=== PATIENT | female | born 2000 | race American Indian/Alaskan Native ===

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

== ENCOUNTER 2019-02-10 16:41 | Inpatient (IN) | payer OTHER ==
[2019-02-10] MEDS ORDERED: OXYTOCIN 20 UNIT/1000ML DRIP 20,000 MILLIUNITS/1,000 ML BAG IV ONE (17:21)
[2019-02-10] MEDS ORDERED: LACTATED RINGERS 1,000 ML ONE (17:24)
[2019-02-10] MEDS ORDERED: fentaNYL 100 MCG/2 ML INJ IV PRN (17:44)
[2019-02-10] MEDS ORDERED: AMPICILLIN/NS 2 GM/100 ML 2 GM/100 ML BAG IV ONE (17:44)
[2019-02-10] MEDS ORDERED: ePHEDrine SULFATE 50 MG/1 ML INJ IV PRN (17:44)
[2019-02-10] MEDS ORDERED: LIDOCAINE (2%) 20 MG/1 ML VIAL 20 ML MDV INFILTRATI ONE (17:44)
[2019-02-10] MEDS ORDERED: TERBUTALINE 1 MG/1 ML INJ IVP PRN (17:44)
[2019-02-10] MEDS ORDERED: TERBUTALINE 1 MG/1 ML INJ SUB-Q PRN (17:44)
[2019-02-10] MEDS ORDERED: MINERAL OIL 30 ML ORAL LIQD PO PRN (17:44)
--- NOTE | 2019-02-10 17:45 | Ultrasound Report ---
US OB limited INDICATION / CLINICAL INFORMATION: for position. COMPARISON: None available. FINDINGS: Fetus is in cephalic presentation. heart rate is 130 bpm. IMPRESSION: 1. lie is currently cephalic. Signer Name: Deny Rivero MD Signed: 02/10/2019 5:40 PM Workstation Name: [id number]
--- NOTE | 2019-02-10 17:52 | History and Physical Report ---
History of Present Illness Date of examination: 02/10/19 Date of admission: 02/10/19 17:09 Chief complaint: contractions History of present illness: This is a 18 yo at 37+6 weeks came in for contractions noted to be 8cm. She is a walk in and chart unavailable. Past History Past Medical History: no pertinent history Past Surgical History: no surgical history Family/Genetic History: none Social history: no significant social history, single. denies: smoking, alcohol abuse, prescription drug abuse - Obstetrical History Expected Date of Delivery: 02/25/19 Actual Gestation: 37 Week(s) 6 Day(s) : 2 Para: 0 Hx # Term Pregnancies: 0 Number of Pregnancies: 0 Spontaneous Abortions: 0 Induced : 1 Number of Living Children: 0 Medications and Allergies Allergies Allergy/AdvReac Type Severity Reaction Status Date / Time No Known Allergies Allergy Unverified 11/06/17 21:14 Active Meds: Active Medications Ephedrine Sulfate (Ephedrine Sulfate) 10 mg IV Q2M PRN PRN Reason: Hypotension Fentanyl (Sublimaze) 100 mcg IV Q2H PRN PRN Reason: Labor Pain Oxytocin/Sodium Chloride (Pitocin/Ns 20 Unit/1000ml Drip) 20 units in 1,000 mls @ 125 mls/hr IV DIRECT JACKIE Oxytocin/Sodium Chloride (Pitocin/Ns 30 Unit/500ml) 30 units in 500 mls @ 1 mls/hr IV TITR JACKIE; Protocol Lactated Ringer's (Lactated Ringers) 1,000 mls @ 125 mls/hr IV DIRECT JACKIE Ampicillin Sodium (Ampicillin/Ns 2 Gm/100 Ml) 2 gm in 100 mls @ 100 mls/hr IV ONCE ONE; Protocol Stop: 02/10/19 18:43 Lidocaine (Xylocaine 2%) 20 ml INFILTRATI ONCE ONE Stop: 02/10/19 17:45 Mineral Oil (Mineral Oil) 30 ml PO QHS PRN PRN Reason: Constipation Terbutaline Sulfate (Brethine) 0.25 mg SUB-Q ONCE PRN PRN Reason: Hyperstimulation/Hypertonicity Terbutaline Sulfate (Brethine) 0.25 mg IVP ONCE PRN PRN Reason: Hyperstimulation/Hypertonicity - Vital Signs Vital signs: Vital Signs Pulse BP 100 H 137/81 02/10/19 16:50 02/10/19 16:50 Temp Pulse Resp BP Pulse Ox 100 H 137/81 02/10/19 16:50 02/10/19 16:50 - Physical Exam Breasts: Positive: normal Cardiovascular: Regular rate, Normal S1 Lungs: Positive: Clear to auscultation, Normal air movement Abdomen: Positive: normal appearance, soft, normal bowel sounds. Negative: distention, tenderness, guarding Genitourinary (Female): Positive: normal external genitalia, normal perenium Vagina: Positive: normal moisture Uterus: Positive: normal size, normal contour Anus/Rectum: Positive: normal perianal skin Extremities: Positive: normal - Obstetrical FHR: category 1 Cervical Dilatation: 10 Cervical Effacement Percentage: 100 station: 0 Uterine Contraction Pattern: Regular Uterine Tone Measurement Phase: Contraction Uterine Contraction Intensity: Moderate Results All other labs normal. Assessment and Plan A/P IUP 37+6 weeks walk in patient hx of asthma _ no hemabate GBS unknown IVF, labs too late for epidural Amp rosaura expect vaginal delivery
[2019-02-10] MEDS ORDERED: OXYTOCIN 20 UNIT/1000ML DRIP 20 UNITS/1,000 ML BAG IV SCH ×2 (18:00→20:00)
[2019-02-10] MEDS ORDERED: LACTATED RINGERS 1,000 ML IV SCH (18:00)
[2019-02-10] MEDS ORDERED: OXYTOCIN DRIP 30 UNITS/500 ML BAG IV SCH (18:00)
[2019-02-10 18:27] LABS: Hematocrit 26.5 % (30.3-42.9); Mean Corpuscular HGB Conc 30 % (30-34); Platelet Count 325 K/mm3 (140-440); Red Blood Count 4.41 M/mm3 (3.65-5.03); Red Cell Distribution Width 19.5 % (13.2-15.2)
[2019-02-10 18:29] LABS: Mean Corpuscular Volume 60 fl (79-97)
[2019-02-10] MEDS ORDERED: HYDROcodone/ACETAMINOPHEN 5-325 MG TAB PO PRN (19:22)
[2019-02-10] MEDS ORDERED: ONDANSETRON 4 MG/2 ML INJ IV PRN (19:22)
[2019-02-10] MEDS ORDERED: ACETAMINOPHEN 325 MG TAB PO PRN (19:22)
[2019-02-10] MEDS ORDERED: LANOLIN/ZINC/DIMETHICONE (LANSINOH) 7 GM TP PRN (19:22)
[2019-02-10] MEDS ORDERED: KETOROLAC 30 MG/1 ML INJ IV PRN (19:22)
[2019-02-10] MEDS ORDERED: MAGNESIUM HYDROXIDE (MOM) ORAL LIQD UDC PO PRN (19:22)
[2019-02-10] MEDS ORDERED: PROMETHAZINE 25 MG RECT SUPP PR PRN (19:22)
[2019-02-10] MEDS ORDERED: WITCH HAZEL/ GLYCERIN PAD TP PRN (19:22)
[2019-02-10] MEDS ORDERED: PROMETHAZINE 25 MG TAB PO PRN (19:22)
[2019-02-10] MEDS ORDERED: oxyCODONE /ACETAMINOPHEN 5-325MG TAB PO PRN (19:22)
[2019-02-10] MEDS ORDERED: diphenhydrAMINE 25 MG CAP PO PRN (19:22)
--- NOTE | 2019-02-10 19:26 | Procedure Note ---
OB Delivery Note - Delivery Date of Delivery: 02/10/19 Surgeon: PIERO REYES Estimated blood loss: 300cc - Vaginal Delivery presentation: vertex Delivery position: OA Delivery induction: none Delivery augmentation: pitocin Delivery monitor: external FHT, external uterine Route of delivery: Delivery placenta: spontaneous Delivery cord: 3 umbilical vessels Episiotomy: none Delivery laceration: vaginal side wall Delivery repair: vicryl Anesthesia: local - A at 1 minute: 8 at 5 minutes: 9 Infant Gender: Male (6 pounds 12 oz)
[2019-02-10 20:14] LABS: Basophils % (Auto) 0.2 % (0.0-1.8); Hematocrit 28.2 % (30.3-42.9); Hemoglobin 8.5 gm/dl (10.1-14.3); Lymphocytes # (Auto) 1.4 K/mm3 (1.2-5.4); Lymphocytes % (Auto) 8.3 % (13.4-35.0); Mean Corpuscular HGB Conc 30 % (30-34); Monocytes # (Auto) 0.7 K/mm3 (0.0-0.8); Monocytes % (Auto) 3.8 % (0.0-7.3); Platelet Count 269 K/mm3 (140-440); Red Blood Count 4.55 M/mm3 (3.65-5.03)
[2019-02-10 20:25] LABS: Mean Corpuscular Volume 62 fl (79-97)
[2019-02-10] MEDS: IBUPROFEN 600 MG TAB PO SCH (21:16)
[2019-02-10] MEDS: SENNOSIDES/DOCUSATE SODIUM 8.6/50 MG TAB PO SCH (22:50)
[2019-02-10 23:35] LABS: Alanine Aminotransferase 5 units/L (7-56)
[2019-02-11 03:11] LABS: Uric Acid 6.1 mg/dL (3.5-7.6)
[2019-02-11] MEDS: IBUPROFEN 600 MG TAB PO SCH ×3 (03:45→22:00)
[2019-02-11] MEDS ORDERED: MEASLES, MUMPS & RUBELLA 12,500 UNIT/0.5 ML VACCINE SUB-Q ONE (06:00)
[2019-02-11] MEDS ORDERED: TETANUS,DIPH,PERTUSS(ACELL) VACCINE 0.5 ML SYRINGE IM ONE (06:00)
[2019-02-11] MEDS: DOCUSATE SODIUM 100 MG CAP PO SCH ×3 (06:19→22:10)
[2019-02-11 09:37] LABS: Hematocrit 24.3 % (30.3-42.9); Hemoglobin 7.5 gm/dl (10.1-14.3)
--- NOTE | 2019-02-11 11:18 | Progress Note ---
Assessment and Plan A/P PPD 1 walk in anemia -iron tid routine PP care discharge home tomorrow Subjective - Subjective Date of service: 02/11/19 Principal diagnosis: Interval history: This is a 18 yo at 37+6 weeks came in for contractions noted to be 8cm. She is a walk in and chart unavailable. Patient reports: appetite normal, voiding normally, pain well controlled, flatus, ambulating normally Robbins: doing well Objective - Vital Signs Latest vital signs: Vital Signs Temp Pulse Resp BP BP Pulse Ox 02/11/19 07:39 98.4 F 94 H 20 110/57 100 02/11/19 05:43 97.2 F L 119 H 20 103/56 99 02/10/19 22:45 98.7 F 87 18 117/73 02/10/19 22:18 102 H 123/66 02/10/19 22:03 93 H 126/68 02/10/19 21:59 98 H 142/65 02/10/19 21:50 96 H 153/80 02/10/19 21:39 96 H 133/79 02/10/19 21:34 90 146/100 02/10/19 21:30 96 H 138/87 02/10/19 21:19 120 H 152/84 02/10/19 21:16 18 02/10/19 21:14 98 H 143/80 02/10/19 21:10 88 156/74 02/10/19 21:04 79 146/88 02/10/19 20:59 83 147/93 02/10/19 20:54 83 153/82 02/10/19 20:44 94 H 157/100 02/10/19 20:39 85 147/97 02/10/19 20:34 93 H 144/105 02/10/19 20:30 105 H 148/109 02/10/19 20:24 98 H 143/87 02/10/19 20:19 102 H 156/91 02/10/19 20:15 104 H 144/87 02/10/19 20:09 113 H 182/73 02/10/19 20:05 106 H 155/74 02/10/19 20:00 100 H 147/67 02/10/19 19:39 100 H 168/74 02/10/19 19:34 107 H 155/74 02/10/19 19:29 102 H 150/78 02/10/19 19:26 100 H 133/70 02/10/19 19:19 111 H 169/91 02/10/19 19:11 20 02/10/19 19:10 98 H 153/99 02/10/19 18:02 98.6 F 02/10/19 16:50 100 H 137/81 Intake and Output 02/10/19 02/11/19 02/11/19 23:59 07:59 15:59 Intake Total 120 Balance 120 Intake: Oral 120 Other: Total, Intake Amount 120 Weight 78.018 kg - Exam Breasts: Present: normal Cardiovascular: Present: Regular rate, Normal S1 Lungs: Present: Clear to auscultation, Normal air movement Abdomen: Present: normal appearance, soft, normal bowel sounds. Absent: distention, tenderness, guarding Vulva: both: normal Uterus: Present: normal, firm. Absent: bogginess, tenderness Extremities: Present: normal Deep Tendon Reflex Grade: Normal +2 - Labs Labs: Abnormal lab results 02/10/19 02/10/19 02/10/19 Range/Units 17:45 19:41 21:26 WBC 14.4 H 17.3 H (4.5-11.0) K/mm3 Hgb 8.0 L 8.5 L (10.1-14.3) gm/dl Hct 26.5 L 28.2 L (30.3-42.9) % MCV 60 L 62 L (79-97) fl MCH 18 L 19 L (28-32) pg RDW 19.5 H 20.0 H (13.2-15.2) % Lymph % (Auto) 8.3 L (13.4-35.0) % Seg Neutrophils % 87.7 H (40.0-70.0) % Seg Neutrophils # 15.2 H (1.8-7.7) K/mm3 ALT 5 L (7-56) units/L Lactate Dehydrogenase 280 H (91-180) units/L 02/11/19 Range/Units 08:37 WBC (4.5-11.0) K/mm3 Hgb 7.5 L (10.1-14.3) gm/dl Hct 24.3 L (30.3-42.9) % MCV (79-97) fl MCH (28-32) pg RDW (13.2-15.2) % Lymph % (Auto) (13.4-35.0) % Seg Neutrophils % (40.0-70.0) % Seg Neutrophils # (1.8-7.7) K/mm3 ALT (7-56) units/L Lactate Dehydrogenase (91-180) units/L
--- NOTE | 2019-02-11 11:21 | Discharge Summary ---
Providers - Providers Date of Admission: 02/10/19 17:09 Date of discharge: 02/12/19 Attending physician: PIERO REYES MD Primary care physician: EXERCISE MANAGER Hospitalization Reason for admission: active labor Delivery: Episiotomy: none Laceration: none Incision: normal, dry Other procedures: none complications: none Discharge diagnosis: IUP at term delivered baby: male Hospital course: Walkin patient came in in labor. Delivered a viable male infant. F/u in 4 weeks Condition at discharge: Good Disposition: DC-01 TO HOME OR SELFCARE Plan - Discharge Medications Prescriptions: Ferrous Sulfate [Feosol 325 MG tab] 325 mg PO TID #60 tablet Ibuprofen [Motrin] 600 mg PO Q8H PRN #30 tablet PRN Reason: Pain oxyCODONE /ACETAMINOPHEN [Percocet 5/325] 1 tab PO Q6HR PRN #30 tablet PRN Reason: Pain - Provider Discharge Summary Additional instructions: [] Smoking cessation referral if applicable(refer to patient education folder for contact #) [] Refer to [facility] Booklet Call your doctor immediately for: * Fever > 100.5 * Heavy vaginal bleeding ( >1 pad per hour) * Severe persistent headache * Shortness of breath * Reddened, hot, painful area to leg or breast * Drainage or odor from incision. * Keep incision clean and dry at all times and follow doctor's instructions regarding bathing/showering - Follow up plan Follow up: PRIMARY MD NATY [Primary Care Provider] - 7 Days
[2019-02-11] MEDS: PRENATAL VIT27-FE FUMARATE-FOLIC ACID VIT TAB PO SCH (16:45)
[2019-02-11] MEDS: SENNOSIDES/DOCUSATE SODIUM 8.6/50 MG TAB PO SCH (22:08)
[2019-02-12 16:36] VITALS: BP 115/69
[2019-02-12] MEDS: IBUPROFEN 600 MG TAB PO SCH (17:49)
[2019-02-12] MEDS: DOCUSATE SODIUM 100 MG CAP PO SCH (17:50)
[2019-02-12] MEDS: PRENATAL VIT27-FE FUMARATE-FOLIC ACID VIT TAB PO SCH (17:51)
[2019-02-21 06:20] LABS: HIV-1 Antibody Differentiation SEE SCANNED RESULT; HIV-2 Antibody Differentiation SEE SCANNED RESULT
== END 2019-02-12 19:00 | disposition home or self-care (01) | DRG 775 ==
LOC: TRG 16:41 → LD 17:09 → OB 23:24
PROVIDERS: ADMIT Obstetrics & Gynecology; ATTEND Obstetrics & Gynecology
PROC: 10E0XZZ Delivery of Products of Conception, External Approach (ICD-10-PCS; principal; 2019-02-10)
PROC: 0UQGXZZ Repair Vagina, External Approach (ICD-10-PCS; 2019-02-10)
PROC: 3E0234Z Introduction of Serum, Toxoid and Vaccine into Muscle, Percutaneous Approach (ICD-10-PCS; 2019-02-11)
DX: O99.52 Diseases of the respiratory system complicating childbirth (principal); J45.909 Unspecified asthma, uncomplicated; O99.02 Anemia complicating childbirth; D50.0 Iron deficiency anemia secondary to blood loss (chronic); O71.4 Obstetric high vaginal laceration alone; Z3A.37 37 weeks gestation of pregnancy; Z37.0 Single live birth; Z23 Encounter for immunization
CPT/HCPCS: 36415; 76815; 82565; 83615; 84450; 84460; 84550; 85014; 85018; 85025; 85027; 86592; 86689; 86706; 86762; 86850; 86900; 86901; G0378; J0290; J2590; J3010; J7120